=== PATIENT | male | born 1975 | race Caucasian/White ===

== ENCOUNTER 2016-09-20 16:29 | Emergency (ER) | payer OTHER ==
[~2016-09-20 16:29] MED LIST: ABILIFY10 M1 PO; ADDERALL 2020 MG/TAB GT; ADDERALL XR 2020 M1 PO; ADDERALL XR PO; CELEBREX PO; CELEBREX200 M1 PO; CHANTIX; CYCLOBENZAPRINE PO; CYCLOBENZAPRINE10 M1 PO; CYCLOBENZAPRINE5 M1; CYMBALTA60 M1 PO; FARXIGA PO; JANUVIA PO; KEFLEX500 M4 PO; METHYLPHENIDATE20 M9 PO; MOTRIN800 MG PO; NORCO 5-325 TA1 EACH PO; NORCO 5/325 TAB1 TAB PO; OMEPRAZOLE20 M3 PO; OMEPRAZOLE20 M4 PO; OSTERA TABLET1 EAC1 PO; PAXIL; RITALIN10 M1 PO; RITALIN20 M1 PO; SKELAXIN800 MG PO; TOPAMAX100 M2 PO; TOPIRAMATE PO; VALIUM10 M1 PO; VITAMIN D250000 UNI1 PO
[2016-09-20] MEDS ORDERED: AUGMENTIN 875-1 EAC2 PO (17:40)
[2016-09-20] MEDS ORDERED: PREDNISONE20 M1 PO (17:40)
[2016-09-20] MEDS ORDERED: ALBUTEROL2.5 MG/0.1 (17:40)
== END 2016-09-20 18:05 ==
LOC: EDMED 16:29
DX: J20.9 Acute bronchitis, unspecified (principal); J45.909 Unspecified asthma, uncomplicated; H66.92 Otitis media, unspecified, left ear; F17.200 Nicotine dependence, unspecified, uncomplicated; Z90.89 Acquired absence of other organs